=== PATIENT | male | born 1960 | race African-American/Black ===

== ENCOUNTER 2018-12-16 17:45 | Inpatient (IN) | payer OTHER ==
[~2018-12-16] VITALS: Ht 182.9 cm; Wt 46.3 kg
[~2018-12-16 17:45] MED LIST: ACETAMINOPHEN325 M1; PENICILLIN VK500 MG PO; PERCOCET 7.5-51 EACH PO
[2018-12-16 18:25] VITALS: BP 115/74
[2018-12-16 19:40] LABS: BASOPHILS 0.5 % (0.0-2.0); EOSINOPHILS 0.6 % (0.0-3.0); HEMATOCRIT 40.4 % (42.0-52.0); HEMOGLOBIN 13.6 gm/dL (14.0-18.0); LYMPHOCYTES 15.3 % (24.0-44.0); MCH 28.9 pg (26.0-34.0); MCHC 33.6 g/dL (28.0-37.0); MCV 86.1 fL (80.0-100.0); MONOCYTES 8.2 % (1.0-8.0); PLATELET COUNT 502 thou/uL (150-400); POLYS 75.4 % (36.0-66.0); RBC 4.69 mil/uL (4.50-6.00); RDW 12.9 % (10.5-14.5); WBC 9.3 thou/uL (4.0-11.0)
[2018-12-16 19:49] LABS: CALCIUM 10.4 mg/dL (8.5-10.1); CREATININE 1.1 mg/dL (0.7-1.3)
[2018-12-16 19:50] LABS: MAGNESIUM 2.6 mg/dL (1.8-2.4)
[2018-12-16 20:36] VITALS: BP 110/75
[2018-12-16 20:49] VITALS: BP 112/73
[2018-12-16 22:50] VITALS: BP 107/65
[2018-12-17 04:30] VITALS: BP 100/62
--- NOTE | 2018-12-17 05:02 | NUR ---
PT ARRIVED TO FLOOR WITH 6 SHILEY CFS TRACH. IT ISN'T EASY TO MAKE OUT THE DETAILS. THE PT IS VERY PARTICULAR ABOUT WRITING EVERYTHING OUT AND TALKING BACK AND FORTH BEFORE ANYTHING IS EVEN SET UP IN THE ROOM. SAT IS 94% ON ROOM AIR. PT DOESN'T WANT ADDITIONAL O2 OR HUMIDITY AT THIS TIME. HE DOESN'T WANT TO BE SUCTIONED OR HAVE AEROSOL TX. HE USES WHAT APPEARS TO BE A REUSABLE INNER CANNULA TO SCOOP OUT SECRETIONS AND THEN WASHES THAT OUT OF THE CANNULA WITH HOT TAP WATER. I TOLD HIM THAT USING TAP WATER WASN'T THE BEST ALTERNATIVE--TAP WATER ISN'T CLEAN ENOUGH--BUT HE DIDN'T WANT TO HEAR IT. MAYBE A DOCTOR CAN EXPLAIN IT BETTER. HE SAYS HE HAS HAD THE TRACH OVER A YEAR AND NEVER NEEDS O2, SUCTION, OR TREATMENTS. I CAME BACK AFTER THE RN HAD FINISHED ADMITTING HIM. HE LET ME LOOK MORE CLOSELY AT THE TRACH, CHANGE THE TRACH TIES, AND LOOK AT THE STOMA AREA. IT'S VERY SORE. HE JUMPED WHEN I CHANGED THE TIES. IT WAS CLEAN, BUT INFECTED-LOOKING. I DIDN'T CLEAN ANYTHING BECAUSE IT JUST LOOKED SCABBY AND SORE. I LEFT SUPPLIES WITH HIM IN CASE HE WANTED TO DO IT. I TOLD THE RN THAT HE NEEDS A WOUND CARE CONSULT. THERE IS SUCTION, O2 AND A PULSE OX IN CASE THEY'RE NEEDED LATER. WE WILL CHECK IN ON DAYSHIFT AND I TOLD HIM TO LET THE RN KNOW IF HE CHANGED HIS MIND ABOUT ANYTHING HE NEEDS IN THE MEANTIME. KAMI ANTONIO RT DEPT.
[2018-12-17 06:36] LABS: HEMATOCRIT 32.5 % (42.0-52.0); MCH 28.4 pg (26.0-34.0); MCHC 32.1 g/dL (28.0-37.0); MCV 88.2 fL (80.0-100.0); RBC 3.69 mil/uL (4.50-6.00); RDW 12.9 % (10.5-14.5); WBC 6.1 thou/uL (4.0-11.0)
[2018-12-17 06:39] LABS: HEMOGLOBIN 10.5 gm/dL (14.0-18.0)
[2018-12-17 06:44] LABS: CALCIUM 9.4 mg/dL (8.5-10.1); CREATININE 0.9 mg/dL (0.7-1.3); POTASSIUM 4.3 mmol/L (3.5-5.1)
[2018-12-17 08:08] VITALS: BP 106/69
--- NOTE | 2018-12-17 08:16 | NUR ---
PT ADMISSION COMPLETED. VSS. ESTABLISHED EFFECTIVE COMMUNICATION WITH PT THROUGH WRITTEN TEXT AND TABLET USE. RT WORKING WITH PT FOR TRACH CARE. PT PARTICULAR ABOUT TRACH CARE REGIMEN. PT DENIES N/V AND PAIN AT THIS TIME. CONTINUE FOLLOW PLAN OF CARE. SHIFT REPORT GIVEN AT 0700.
[2018-12-17 18:17] VITALS: BP 98/62
--- NOTE | 2018-12-17 18:30 | NUR ---
PT ASSESSED AT START OF SHIFT. PT UP AD NEVAEH AND STEADY ON FEET. TAKING CARE OF TRACH SITE. PT TOOK ONE AEROSOL TX THIS AM BUT REFUSES THEN THEN BOTHER HIS THROAT. DR. MICHAELS CONSULTED GI TO EVAL ESOPHAGUS PT C/O DIFFICULTY [id number] FOR THE LAST 2 WEEKS. WOUND CARE IN AND ORDER TREATMENT FOR EXCORIATED AREA AROUND TRACH STOMA. PT'S MOTHER CALLED TO TALK W/ ME RE PT NOT RETURNING HOME TO HIS MOTHER'S HOUSE. STATES PT HAS BEEN HOMELESS MOST OF ADULT LIFE AND MOVE IN W/ MOTHER LAST YEAR BUT IS TOO STRESSFUL ON HER NOW AND SHE FEELS SHE CANNOT HAVE HIM BACK-WOULD LIKE TO TALK W/ LOG SORTING SUPERVISOR.
[2018-12-17 19:48] VITALS: BP 126/73
[2018-12-17 23:50] LABS: URINE BILIRUBIN NEGATIVE (Negative); URINE BLOOD NEGATIVE (Negative); URINE CLARITY CLEAR; URINE COLOR YELLOW; URINE GLUCOSE-RANDOM* NEGATIVE (Negative); URINE KETONES 1+ (Negative); URINE LEUKOCYTES-REFLEX NEGATIVE (Negative); URINE NITRITE-REFLEX NEGATIVE (Negative); URINE PROTEIN (DIPSTICK) NEGATIVE (Negative); URINE UROBILINOGEN 0.2 E.U./dl (0.2-1.0)
--- NOTE | 2018-12-18 03:58 | NUR ---
ASSUMED PT CARE 1900. PT ALERT AND ORIENTED. VSS. PROVIDED WOUND CARE DIRECTED. REASSESSMENT COMPLETED. IV DRESSING C/D/I, DRESSING REINFORCED. NO SIGNS OF INFILTRATION. PT CALL LIGHT AND PERSONAL BELONGINGS WITHIN REACH. WILL CONTINUE POC UNTIL EOS.
[2018-12-18 04:02] VITALS: BP 106/71
[2018-12-18 05:38] LABS: HEMATOCRIT 34.5 % (42.0-52.0); HEMOGLOBIN 11.2 gm/dL (14.0-18.0); MCH 28.6 pg (26.0-34.0); MCHC 32.6 g/dL (28.0-37.0); MCV 87.8 fL (80.0-100.0); RBC 3.93 mil/uL (4.50-6.00); RDW 12.9 % (10.5-14.5); WBC 7.6 thou/uL (4.0-11.0)
[2018-12-18 06:13] LABS: CALCIUM 9.4 mg/dL (8.5-10.1); POTASSIUM 3.5 mmol/L (3.5-5.1)
[2018-12-18 07:34] VITALS: BP 98/67
--- NOTE | 2018-12-18 09:10 | NUR ---
WOUND CONSULT: PT. WAS SEEN TODAY BY DR. BURGOS AND MYSELF. PT. HAS AN ULCERATION WITH SCABBING TO THE CHELLE-STOMAL AREA AROUND HIS TRACH SITE. THERE ARE NO SIGNS OR SYMPTOMS ASSOCIATED WITH INFECTION NOTED AT THIS TIME. RECOMMENDATIONS: NEOSPORIN, XEROFORM, GAUZE, DAILY AND PRN. PT. AND STAFF NURSE WERE INSTRUCTED ON PLAN OF CARE.
--- NOTE | 2018-12-18 11:32 | NUR ---
PT DOWN FOR VIDEO SWALLOW AT THIS TIME.
--- NOTE | 2018-12-18 14:00 | NUR ---
PT LEFT VIA W/C FOR CT OF SOFT TISSUE NECK.
--- NOTE | 2018-12-18 14:49 | NUR ---
ORDERS RECEIVED FOR EVAL AND TREAT. Pt IS UP AD NEVAEH AND HAS BEEN WALKING OUT TO THE NURSING STATION WITHOUT DIFFICULTY. Pt INDICATED HE DID NOT NEED P.T. SERVICES AND DECLINED A FORMAL P.T. EVAL
--- NOTE | 2018-12-18 16:07 | NUR ---
INITIAL ASSESSMENT: Pt evaluated for d/c planning needs. Reviewed chart and spoke with physician, nurse and pt's mother. Pt had been living at home with his 84 year old mother. Mother reports that pt had been estranged from the family for over 20 years. Pt's father was area physician and several years ago. Pt's brother in 2010 from complications of diabetes. Pt's sister is an flash welder in [place], [place]. While estranged from the family, pt had been homeless. Mother reports she found patient living [place] with a new trach. She said she took him home and he was living in her basement. Mother said that pt is disrespectful of her and her home. Pt was hospitalized at [facility] and [place] in the past. Mother said that drug abuse social worker at hospital helped him with Social Security disability application and Medicaid application. Mother said pt is very private and did not share with her if he completed applications. Mother also said that people from a [employer] tried to help pt while he was homeless and put him up in a motel, but they would not continue to pay for his motel room. Mother said pt was seen by a psychologist years ago and was told he had grandiose ideas. She is not aware of any other psychiatric diagnoses or hospitalizations. Pt graduated from [employer] in 1976 and went to college, but did not graduate. Pt's mother plans on coming to the hospital on Tuesday with his sister to tell him that she will not allow him to return to her home. Will remain available to assist as needed.
--- NOTE | 2018-12-18 16:33 | NUR ---
Once tube feeding started, recommend jevity 1.5 to start 20ml/hr and advance slowly to goal 40ml/hr
[2018-12-18 17:30] VITALS: BP 101/67
[2018-12-18 19:38] VITALS: BP 113/69
--- NOTE | 2018-12-19 05:21 | NUR ---
PATIENTS CARES WERE ASSUMED AT SHIFT CHANGE. PATIENT WAS ASSESSED AND MEDS WERE PASSED. PATIENT IS NON VERBAL HOWEVER HE COMMUNICATES IN WRITING. SOCIAL SERVICE DID NOT [employer] [employer]. PATIENT IS HOMELESS AND HIS MOTHER DOES NOT WANT HIM BACKAT HER HOME.PATIENT DID REQUEST A DISCHARGE AT 0600 AND PLANS ON NO TREATMENT. NO FOOD WAS GIVEN THIS SHIFT DUE TO HE FAILED THE SWOLLOW STUDY TEST. HOURLY ROUNDING WAS DONE AND PATIENT WAS AWAKE MOST OF THIS SHIFT. THE BED IS IN A LOW AND LOCKED POSITION.
[2018-12-19 05:26] LABS: HEMATOCRIT 34.8 % (42.0-52.0); HEMOGLOBIN 11.1 gm/dL (14.0-18.0); MCH 28.2 pg (26.0-34.0); MCHC 31.8 g/dL (28.0-37.0); MCV 88.5 fL (80.0-100.0); RBC 3.93 mil/uL (4.50-6.00); WBC 5.2 thou/uL (4.0-11.0)
[2018-12-19 05:33] VITALS: BP 107/77
[2018-12-19 05:40] LABS: CALCIUM 9.2 mg/dL (8.5-10.1); CREATININE 0.8 mg/dL (0.7-1.3); POTASSIUM 3.4 mmol/L (3.5-5.1)
--- NOTE | 2018-12-19 12:40 | HC ---
[facility] [place] [address] CONSULTATION Name: ABIOLA AVERY Room #: 427-P [facility] IN M.R.#: [id number] Admission: 12/16/18 ������������������ Attend Phys: Tony Pardo MD Discharge: 12/19/18 ������������������ Date of : 58 Report #: [id number] THIS REPORT FOR: //name// CC: [facility]ADA physician/PCP Tony Pardo DATE OF SERVICE: 12/17/2018 REASON FOR CONSULTATION: Painful open wound under tracheostomy appliance. 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 He had tracheostomy performed at that time. The patient refused chemotherapy and radiation. He is admitted to the Emergency Room with weakness, fever, productive cough. The patient has had decreasing appetite and weight loss. It was noted that the patient had slight open painful wound under the tracheostomy. Wound care was consulted. Past medical history, community-acquired pneumonia, failure to thrive, poor appetite, weakness, laryngeal cancer. ALLERGIES: ASPIRIN. MEDICATIONS: No home medications. PAST MEDICAL HISTORY: Throat cancer. PAST SURGICAL HISTORY: Tracheostomy. PHYSICAL EXAMINATION: GENERAL: Shows a thin, chronically ill appearing gentleman who is alert. HEENT: Mucous membranes are moist. Sclerae are white. PULMONARY: Respirations unlabored. ABDOMEN: Soft. The patient is thin. NECK: Examination of the patient's neck shows a tracheostomy appliance. Tracheostomy appliance is lifted off the entry site into the neck and there was seen to be very small open wound close to the site at which the tracheostomy passes through the skin and subcutaneous tissue. Wounds measure 2 x 3 x 2 mm, slightly tender. No overt cellulitis. No overt purulence. IMPRESSION: 1. Laryngeal cancer. 2. Failure to thrive, poor appetite. 3. Protein-calorie malnutrition. 4. Nonhealed surgical wound at tracheostomy site with slight open wound, [facility] [address] [place] [address] CONSULTATION Name: ABIOLA AVERY Room #: 427-P [facility] IN M.R.#: [id number] Admission: 12/16/18 ������������������ Attend Phys: Tony Pardo MD Discharge: 12/19/18 ������������������ Date of : 58 Report #: [id number] possibly due to pressure of the tracheostomy appliance. PLAN: Discussed with the patient's nurse, Padmini. We will apply daily triple antibiotic ointment to the skin around the tracheostomy entry site, covered with Xeroform, to be changed daily. This also helped to offload the skin against pressure of the tracheostomy appliance. Wound care team will follow. ��������������������������������������������� <ELECTRONICALLY SIGNED> ���������������������������������������� By: Willi Martin MD ��������������������������������������������� 12/19/18 [id number] [id number] Willi Martin MD /nt
== END 2018-12-19 07:59 | disposition home or self-care (01) | DRG 205 ==
LOC: ER 17:45 → 4E 20:05 → EROBS 20:05 → 4E 21:48
PROVIDERS: Emergency Medicine; Nurse Practitioner Family; ADMIT Hospitalist
DX: J95.09 Other tracheostomy complication (principal); J69.0 Pneumonitis due to inhalation of food and vomit; E43 Unspecified severe protein-calorie malnutrition; Z68.1 Body mass index [BMI] 19.9 or less, adult; C32.9 Malignant neoplasm of larynx, unspecified; R62.7 Adult failure to thrive; Y83.8 Other surgical procedures as the cause of abnormal reaction of the patient, or of later complication, without mention of misadventure at the time of the procedure; Y92.89 Other specified places as the place of occurrence of the external cause; Z88.6 Allergy status to analgesic agent
CPT/HCPCS: 10183; 10783

== ENCOUNTER 2019-08-16 20:03 | Emergency (ER) | payer OTHER ==
[~2019-08-16] VITALS: Ht 172.7 cm; Wt 45.4 kg
[2019-08-17] MEDS ORDERED: OXYCODONE HCL15 MG PER TUBE (00:21)
[2019-08-17 02:10] VITALS: BP 114/62
[2019-08-17] MEDS ORDERED: NEURONTIN300 MG PER TUBE (02:30)
[2019-08-17] MEDS ORDERED: SLEEP AID50 MG PER TUBE (02:31)
[2019-08-17] MEDS ORDERED: SENNA8.8 MG/5 M PER TUBE (02:32)
[2019-08-17] MEDS ORDERED: LACTULOSE20 GM/30 M PER TUBE (02:32)
[2019-08-17] MEDS ORDERED: IPRAT-ALBUT 0.5-3 ML INH (02:34)
[2019-08-17] MEDS ORDERED: FENTANYL PATCH75 MCG TRANSDERM (02:36)
[2019-08-17] MEDS ORDERED: TYLENOL PO (02:39)
== END 2019-08-17 01:55 | disposition home or self-care (01) ==
LOC: ER 20:03
DX: J95.01 Hemorrhage from tracheostomy stoma (principal); Z85.21 Personal history of malignant neoplasm of larynx; Z88.6 Allergy status to analgesic agent